=== PATIENT | male | born 1980 | race Caucasian/White ===

== ENCOUNTER → 2017-06-27 11:39 | Outpatient (CLI) | payer OTHER, SELFPAY ==
[2017-06-27 15:49] LABS: Absolute Lymphocyte Count 2.14 X10^3/ul (0.83-4.51); Absolute Neutrophil Count 3.5 X10^3/uL (2.0-7.7); Basophil# 0.04 X10^3/uL; Basophil% 0.6 % (0-1); Eosinophil# 0.18 X10^3/uL; Eosinophils% 2.8 % (0-5); Hematocrit 38.1 % (40-54); Hemoglobin 12.7 g/dl (13.0-16.5); Lymphocyte # 2.14 X10^3/ul (4.0); Lymphocyte % 33.1 % (19-41); Mean Corp Hgb Conc 33.3 g/gl (32-36); Mean Corpuscular Hgb 26.2 pg (27.0-32.0); Mean Corpuscular Volume 78.6 fL (80-94); Monocyte# 0.58 X10^3/uL; Neutrophil # 3.53 X10^3/uL (2.7-7.7); Neutrophil % 54.5 % (47-70); Platelet Count 288 K/mm3 (150-450); RBC Distribution Width CV 13.5 % (11.6-14.6); RBC Distribution Width SD 38.1 fl (35.1-43.9); Red Blood Count 4.85 M/mm3 (4.6-6.2); White Blood Count 6.5 K/mm3 (4.4-11.0)
[2017-06-27 15:52] LABS: POSITIVE COUNT NO; POSITIVE DIFFERENTIAL NO; POSITIVE MORPHOLOGY NO
[2017-06-27 16:01] LABS: ALB/GLOB Ratio 0.9 RATIO (0.9-2.4); AST(SGOT) 20 U/L (15-37); Alanine Aminotransfer ALT/SGPT 32 U/L (16-61); Albumin, Serum 3.6 g/dL (3.2-5.0); Alkaline Phosphatase 87 U/L (45-117); Anion Gap 6 (5-15); BUN 16 mg/dL (7-18); BUN/Creat Ratio 13.9 RATIO (10-20); Calcium,Total 8.6 mg/dL (8.5-10.1); Chloride 102 mmol/L (98-107); Creatinine, Serum 1.15 mg/dL (0.70-1.30); EST Glomerular Filtration Rate 75 mL/min (>60); Est Glom Filt Rate - Afr Amer 91 mL/min (>60); Globulin 3.9 g/dL (2.2-4.2); Glucose 111 mg/dL (74-106); Potassium 3.9 mmol/L (3.5-5.1); Protein, Total 7.5 g/dL (6.4-8.2); Sodium Level 137 mmol/L (136-145)
== END ==
PROVIDERS: Family Provider Family Medicine; PCP Family Medicine; Visit Provider Family Medicine
DX: Z01.818 Encounter for other preprocedural examination (principal)
CPT/HCPCS: 36415; 80053; 85025

== ENCOUNTER → 2017-08-21 08:29 | Outpatient (CLI) | payer OTHER, SELFPAY | PROVIDERS: Family Provider Family Medicine; PCP Family Medicine; Visit Provider Podiatrist | DX: Z01.818 Encounter for other preprocedural examination (principal) ==

== ENCOUNTER 2018-01-17 16:00 | Outpatient (RCR) | payer OTHER, SELFPAY ==
--- NOTE | 2017-09-10 11:09 | HP.PTEVAL_ITS ---
Patient's Visit Information GONZALO BABIN is a 36 year old M referred to Physical Therapy by Keri Bhatia DPM with a diagnosis of lateral ankle stabilization, synovectomy, and repair of osteochondral defec. Date of Evaluation: 09/10/17 Physical Therapist: Laquita Garrett - Visit Plan Frequency: 2-3x /Week Duration: 4 Weeks Plan: WBAT- wean from crutches- LE ROM and strength with functional mobility - Subjective Subjective: Initial Injury 05/31/16-had a [employer] drive over him- went to ER- x- rays ruled at sprain- day later [facility]- who told him to walk on it. Lots of soreness- [place] [facility] ordere MRI which showed a break. Sent to Dr. Camargo- attempted non surgical- boot NWB for 6 weeks- then had therapy from August to November- out of boot at end of September. Could not hop and hes a runner and wanted to get back. End of November went for a run and then it started to hurt again. MRI again- still broken. Dr. Camargo sent him to Dr. Bhatia- finally had surgery July 27, 2017 at [facility]- by Dr. Bhatia. In a cast from August 02- August 23 then has been in the boot since. Saw September 07- 50% WB with crutches- with progression to WBAT. Patient goes to [place] October 21-. Wears compression socks. Pain is located in the achilles when he steps on his heel. Worst: 10/10 when he caught himself- 5/10 normally- 0/10 at its best. No radiating pain- N/T around the incision. Sleep: not disturbed- in the boot. Is currently driving with the left foot. 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 PMHx: hernia surgery Meds: none. Fully I before all of this happened- lifts weights and was running 3-4x a week and has been doing halfs and obstacle courses. - Objective Posture: good throughout. Gait: antalgic- axillary crutches with decreased WB on the right LE-CAM walker. Weight Shifting: can WS but reports 7/10 pain in standing. HR/TR: seated- can perform in available ROM. Palpation: tender along incisions. Observation: incisions healing well- no s/s of infection. ROM : knee: wnl Ankle: DF: neutral PF: 10 degrees, Inver: 10 degrees Ever: 5 degrees. Girth: Figure 4: 54 cm, Mets: 24 cm, Mall: 27 cm - Goals Goal 1:: Patient will be I with HEP and progression. Goal Time Frame: 4-6 Weeks Goal 2:: Patient will ambulate >300 feet with a normalized gait pattern and no AD Goal Time Frame: 4-6 Weeks Goal 3:: Patient will demo increased of ROM by 10 degrees in right ankle in all directions Goal Time Frame: 4-6 Weeks Goal 4:: Patient will SLS for 15 sec without LOB or increased pain Goal Time Frame: 4-6 Weeks - Rehabilitation Potential Physical Therapy Diagnosis: Patient presents with hypomobility- he has decreased ROM, strength and muscular endurance s/p surgical intervetion leading to increased pain and decreased ability to perform ADL's. Rehabilitation Potential: Good - Anticipated Interventions Patient/Client Instruction: Educate patient on: Benefits of Fitness Program For the Purpose of:: To increase tolerance to activity/condition/position Therapeutic Exercise to Include: Strength training, Endurance training, Balance training, Agility training, Flexibilty training, Gait and locomotor training, Neuromotor development, Passive ROM, Active ROM, Dynamic Lumbar Stabilization For the Purpose of:: To improve muscle performance and motor function TENS: Yes Cryotherapy (ice pack, ice massage): Yes Thermo therapy (hot pack): Yes Ultrasound (thermal/non thermal): No For the Purpose of:: To decrease pain Thank you for the opportunity to evaluate your patient. For Medicare and Medicare HMO plans, please review the plan of care and approve it. It will need to be FAXED BACK to us at [phone] for Medicare purposes. Please let me know if there are questions or concerns regarding this plan of care. Physician Signature: Date:
--- NOTE | 2017-11-02 09:23 | HP.PTREVAL_ITS ---
Keri Bhatia DPM, It has been my pleasure to treat GONZALO BABIN over the last 21 visits for lateral ankle stabilization, synovectomy, and repair of osteochondral defec. Please see the progress note below for an update on the physical therapy plan of care! Subjective: Saw yesterday who was really happy with his progress. He has been cleared to start a walk to 5K program. He feels the ankle locks up if he hasn't used it for awhile. Has Tried to run on the TM for 3 minutes wasn't pretty but their was little pain. Favors onto the opposite side. Worst: 7/10 when he was in [place]. Objective/Function: Posture: good throughout. Edema: Figure 8: 51 cm Mall: 26 cm Meds: 23 cm. Gait: improving- but still mildly antalgic- decreased stance with decreased heel/toe pattern- does not toe off and ambulates with a flat foot - mild hip drop- wearing ankle brace and good shoes. HR/TR: able without UE A for balance- mild weight shift. SLS: 30 sec with increased muscle activation. ROM: DF: 5 degrees, PF: 30 degrees, Inv: 30 degrees, Ever: 10 degrees. Strength : 4+/5 within available range Plan Plan: Cont with POC Goals Goal 1:: Patient will be I with HEP and progression. Goal Time Frame: 4-6 Weeks Goal Progress: Progressing Goal 2:: Patient will ambulate >300 feet with a normalized gait pattern and no AD Goal Time Frame: 4-6 Weeks Goal Progress: Progressing Goal 3:: Patient will demo increased of ROM by 10 degrees in right ankle in all directions Goal Time Frame: 4-6 Weeks Goal Progress: Progressing Goal 4:: Patient will SLS for 15 sec without LOB or increased pain Goal Time Frame: 4-6 Weeks Goal Progress: Goal Met Goal 5:: Patient will run on the TM for 5 minutes with 0/10 pain and a normal patern Goal Time Frame: 4-6 Weeks Anticipated Interventions Patient/Client Instruction: Educate patient on: Benefits of Fitness Program For the Purpose of:: To increase tolerance to activity/condition/position Therapeutic Exercise to Include: Strength training, Endurance training, Balance training, Agility training, Flexibilty training, Gait and locomotor training, Neuromotor development, Passive ROM, Active ROM, Dynamic Lumbar Stabilization For the Purpose of:: To improve muscle performance and motor function TENS: Yes Cryotherapy (ice pack, ice massage): Yes Thermo therapy (hot pack): Yes Ultrasound (thermal/non thermal): No For the Purpose of:: To decrease pain Please do not hesitate to contact me at [phone] by phone or Fax: if you have questions or concerns regarding this new plan of care! Sincerely, Laquita Garrett
--- NOTE | 2018-01-17 16:37 | HP.PTDCSUM ---
HP - PT D/C Summary It has been my pleasure to treat GONZALO BABIN under orders from Keri Bhatia DPM, for the diagnosis of lateral ankle stabilization, synovectomy, and repair of osteochondral defec for a total of 46 visit(s). Discharge Date: 01/17/18 Please see the following information for a summary of their discharge status. - Subjective Subjective: Feel fine. Has wierd intermittent painsposterior with forward weight shift but transient. Run a couple 5 Ks and up to 3x/week. Sleeping OK except for LBP. No limitations at work. Pulling pallets around. Will have final x ray in May. 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 - Pain Right Foot Pain Intensity (Out of 10): 0 - Overall Improvement % Improvement: 90 - Objective Objective/Function: Patient walks near normal, slight R trendelenberg adn avoids R pushoff slightly. Jogs with slight R push off avoidance at end stance but no problems and thinks he has always done that. 4 degrees DF R actvely and maybe 5 passively. 35 PF and ev/inv WFL. Single leg hop is mostly an upper leg hop and heel raise R is very difficult vs L. OVERALL DOING WELL FUNCTIONALLY, SHOULD AND WILL CONTINUE TO WORK ON WEAKNESS AND TIGHTNESS IN R ANKLE VIA HEP DAILY. - Goals Goal 1:: Patient will be I with HEP and progression. Goal Progress: Goal Met Goal 2:: Patient will ambulate >300 feet with a normalized gait pattern and no AD Goal Progress: avoids push off R Goal 3:: Patient will demo increased of ROM by 10 degrees in right ankle in all directions Goal Progress: Progressing Goal 4:: Patient will SLS for 15 sec without LOB or increased pain Goal Progress: Goal Met Goal 5:: Patient will run on the TM for 5 minutes with 0/10 pain and a normal patern Goal Progress: R antalgia but no pain. - Plan Plan: D/C - D/C Information Discharge Comments: pT HAPPY WITH PROGREE, HAS NO PAIN AND HAS RUN WITHOUT DIFFICULTY MULTIPLE 5 K'S. HE HAS SOME STIFFNESS IN ANKLE RESIDUALLY AND SOME WEAKNESS WHCIH HE CAN CONTINUE TO WORK ON AT HOME VIA HEP. If there are questions or concerns regarding this patient's physical therapy, please feel free to call me at [phone]. Thank you for the referral of this patient. Sincerely, Dashawn Huber DPT, OC
== END 2018-01-17 19:00 | disposition home or self-care (01) ==
LOC: PT 16:00
PROVIDERS: Family Provider Family Medicine; PCP Family Medicine; Visit Provider Podiatrist
DX: Z98.890 Other specified postprocedural states (principal)
CPT/HCPCS: 97110; 97162; 97164; 97530

== ENCOUNTER → 2018-07-25 15:34 | Outpatient (CLI) | payer OTHER, SELFPAY ==
--- NOTE | 2018-07-25 15:36 | RAD_ITS ---
STUDY: X-RAY - LEFT KNEE REASON FOR EXAM: Male, 37 years old. Pain TECHNIQUE: 4 view(s) of the knee. COMPARISON: None. FINDINGS: There is a small knee joint effusion but no acute fractures or dislocations. The quadriceps and patellar tendons are normal. Mild soft tissue swelling in the prepatellar soft tissues. RAD/Knee 4 or More Views IMPRESSION: No fracture. Mild swelling in the prepatellar soft tissues Electronically Signed: Peng Greenfield MD at 23:57 EDT Tel , Service support ,
== END ==
PROVIDERS: Family Provider Family Medicine; PCP Family Medicine; Referring Provider Orthopaedic Surgery; Visit Provider Orthopaedic Surgery
DX: R52 Pain, unspecified (principal)
CPT/HCPCS: 73564

== ENCOUNTER → 2018-08-05 06:33 | Outpatient (CLI) | payer OTHER, SELFPAY ==
--- NOTE | 2018-08-05 06:36 | MRI_ITS ---
STUDY: MRI LEFT KNEE REASON FOR EXAM: Medial knee pain, loss of flexibility. TECHNIQUE: Standardized fat and water weighted pulse sequences were obtained in all 3 orthogonal planes. COMPARISON: Radiographs 07/25/2018. FINDINGS: There is a complex tear of the posterior horn of the medial meniscus (proton-density sagittal images 8-10; proton density coronal images 14, 15). Normal hyaline cartilage of the medial femorotibial compartment. There is mild subchondral bone edema of the medial tibial plateau (T2 coronal images 13-19), a stress phenomenon. Normal medial collateral ligamentous complex (MCL). Normal distal semimembranosus, gracilis and semitendinosus tendons. Normal lateral meniscus. Normal hyaline cartilage of the lateral femorotibial compartment. Normal lateral femoral condyle and tibial plateau. Normal proximal tibiofibular articulation. Normal lateral collateral (fibular) ligament. Normal popliteus tendon. Normal biceps femoris tendon. Normal anterior cruciate ligament (ACL). Normal posterior cruciate ligament (PCL). Normal congruent patellofemoral articulation. Normal hyaline cartilage of the patellofemoral compartment. Normal medial and lateral patellar retinaculum. Normal visualized quadriceps tendon. There is tendon thickening of the distal patellar tendon, with a corticated osseous fragment of the anterior tibial tubercle, consistent with a sequela of remote Alo-Schlatter's disease (proton-density sagittal image 25). Normal Hoffa's fat pad. There is a small joint effusion. There is a thin medial patellar plica. There is a small popliteal cyst (T2 sagittal images 3-8). The otherwise visualized osseous structures are unremarkable. MRI/Lower Ext Joint Only (Routine) IMPRESSION: Medial meniscal tear. Mild subchondral bone edema medial tibial plateau, a stress phenomenon. Small joint effusion. Small popliteal cyst. Remote Laurel-Schlatter's disease. Electronically Signed: Alexandre Hurley MD at 8:21 EDT Tel , Service support ,
== END ==
PROVIDERS: Referring Provider Orthopaedic Surgery; Visit Provider Orthopaedic Surgery
DX: S83.242A Other tear of medial meniscus, current injury, left knee, initial encounter (principal)
CPT/HCPCS: 73721

== ENCOUNTER 2018-08-20 06:00 | Day surgery (SDC) | payer OTHER, SELFPAY ==
[2018-08-20 06:31] VITALS: BP 120/87; PULSE 72; RESP 14; TEMP 36.4; O2SAT 97; BMI 27.0
[2018-08-20] MEDS: MethylPREDNISolone Acetate 80 MG/ML Vial (08:00)
[2018-08-20] MEDS: Bupiv/Epi 0.5% Mpf 30 ML Vial (08:00)
[2018-08-20] MEDS: Morphine 4 MG/ML Syringe (08:00)
[2018-08-20] MEDS: Bupivacaine Mpf 0.5% 30 ML VIAL (08:00)
[2018-08-20 08:21] VITALS: BP 120/87; BP 124/94; PULSE 97; RESP 20; TEMP 36.2; O2SAT 98
--- NOTE | 2018-08-20 08:26 | PCM.DC.ORTHO ---
Discharge Diet: No Restrictions Weight Bearing Status: Weight bearing as tolerated Additional Activity Instructions:: Ice and elevate next 72 hours .keep dressing on clean and dry for 48 hours then may remove begin showering daily but do not submerge in tub or pool. After shower may apply Band-Aids . Encourage knee range of motion weightbearing as tolerated, use crutches until confident in knee then may discontinue. No strenuous activity. When not ambulating keep iced and elevated next 72 hours. Call your doctor if you observe: Fever of 101 or Higher, Shortness of breath, Chest pain, Uncontrolled pain Allergies/Adverse Reactions: Allergies amoxicillin Allergy (Verified 08/14/18 08:05) rash, hives aspirin Allergy (Verified 08/13/18 15:18) Unknown Medications to take at Discharge Bee Pollen 1,000 mg PO DAILY 10/25/16 meloxicam 15 mg tablet 15 mg PO DAILY #30 tab 07/25/18 Hydrocodone Bitart/Apap 5-325 [[place] 5MG-325MG] 1 - 2 tablet PO Q4H PRN PRN 5 Days #30 tablet 08/20/18 The following prescriptions were given: Hydrocodone Bitart/Apap 5-325 [[place] 5MG-325MG] 1 - 2 tablet PO Q4H PRN PRN 5 Days #30 tablet PRN Reason: Pain Primary Care Physician: Care Physician,No Primary [Primary Care Provider] - Test Results: Test results from this visit will be discussed in further detail at your follow-up appointment, if applicable. Please Follow Up With: Ismael Espinosa DO - 2wsteph
--- NOTE | 2018-08-20 08:29 | DCINST_ITS ---
Discharge Diet: No Restrictions Weight Bearing Status: Weight bearing as tolerated Additional Activity Instructions:: Ice and elevate next 72 hours .keep dressing on clean and dry for 48 hours then may remove begin showering daily but do not submerge in tub or pool. After shower may apply Band-Aids . Encourage knee range of motion weightbearing as tolerated, use crutches until confident in knee then may discontinue. No strenuous activity. When not ambulating keep iced and elevated next 72 hours. Call your doctor if you observe: Fever of 101 or Higher, Shortness of breath, Chest pain, Uncontrolled pain Allergies/Adverse Reactions: Allergies amoxicillin Allergy (Verified 08/14/18 08:05) rash, hives aspirin Allergy (Verified 08/13/18 15:18) Unknown Medications to take at Discharge Bee Pollen 1,000 mg PO DAILY 10/25/16 meloxicam 15 mg tablet 15 mg PO DAILY #30 tab 07/25/18 Hydrocodone Bitart/Apap 5-325 [[place] 5MG-325MG] 1 - 2 tablet PO Q4H PRN PRN 5 Days #30 tablet 08/20/18 The following prescriptions were given: Hydrocodone Bitart/Apap 5-325 [[place] 5MG-325MG] 1 - 2 tablet PO Q4H PRN PRN 5 Days #30 tablet PRN Reason: Pain Primary Care Physician: Care Physician,No Primary [Primary Care Provider] - Test Results: Test results from this visit will be discussed in further detail at your follow- up appointment, if applicable. Please Follow Up With: Ismael Espinosa DO - 2wsteph
[2018-08-20 08:30] VITALS: BP 120/87; BP 121/90; PULSE 78; RESP 16; O2SAT 99
--- NOTE | 2018-08-20 08:32 | OP.PCM_ITS ---
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 He did wish to undergo elective arthroscopic surgery to attempt to alleviate the symptoms. Risk benefits and alternatives of the procedure were reviewed including risk of bleeding infection nerve artery tissue damage need for further surgery continued pain and expected postoperative course. Procedure: The patient was met in the preoperative holding area. The operative extremity was identified by both patient and physician and family and marked. Patient was brought back to the operating room on a wheeled cart and transferred to the operating table in the supine position. Anesthesia was started. A well- padded tourniquet was placed on the operative extremity. A lower extremity leg sow was secured to the operative extremity. The contralateral extremity was well-padded and the end of the bed was flexed to 90 degrees. The patient was prepped and draped in the usual sterile fashion. A timeout was called to ensure the proper patient, procedure, and extremity were being contemplated. 0.5% Marcaine with epinephrine was injected into the planned incisional areas under the skin only. An Esmarch was used to exsanguinate the extremity and the tourniquet was inflated. An 11 blade scalpel was used to make a stab incision in the anterior lateral portal. The arthroscope was inserted into the intercondylar notch and inflow and outflow tubes were attached. Arthroscopic visualization began. The medial compartment was entered. An 18-gauge spinal needle was used to establish the placement for anterior medial portal. An 11 blade scalpel was used to make a stab incision. Blunt probe was inserted followed by a meniscal probe. Immediately there was noted to be a large radial and horizontal tear of the posterior horn and body of the medial meniscus with the use of a shaver and ArthroCare partial medial meniscectomy was performed there was noted to be grade 2-3 cartilage wear on the most lateral aspect of the medial femoral condyle there was no loose cartilage that required chondroplasty the ACL was found to be intact. The lateral compartment was entered was free of meniscal and cartilage pathology The arthroscope was switched to the medial portal to complete the procedure. The medial and lateral gutters were inspected and were free of loose bodies. The patellofemoral joint was inspected was a small amount of grade 2-3 cartilage wear. There was good patellar tracking. The knee was thoroughly irrigated and drained. An intra-articular injection with 5 cc 0.5% Marcaine plain 4 mg of morphine and 40 mg of Depo-Medrol was injected intra-articularly. The arthroscope was removed the portals were closed with 3-0 nylon arthroscopic stitches. Followed by Xeroform 4 x 4's ABDs web roll and an Lukas wrap. The tourniquet was let down and the drapes were removed. All counts were correct. The patient was brought back to the PACU in stable condition.
[2018-08-20 08:45] VITALS: BP 120/87; BP 128/82; PULSE 73; RESP 16; TEMP 36.3; O2SAT 99
[2018-08-20 09:24] VITALS: BP 120/87; BP 121/76; PULSE 71; RESP 18; TEMP 36.4; O2SAT 100
== END 2018-08-20 09:26 | disposition home or self-care (01) ==
LOC: SDC 06:03 → AC 06:08
PROVIDERS: Referring Provider Orthopaedic Surgery; Visit Provider Orthopaedic Surgery
PROC: (CPT 29870; principal; 2018-08-20 07:10)
DX: S83.242A Other tear of medial meniscus, current injury, left knee, initial encounter (principal); X58.XXXA Exposure to other specified factors, initial encounter; Y92.9 Unspecified place or not applicable; K21.9 Gastro-esophageal reflux disease without esophagitis
CPT/HCPCS: 01400; 29881; J7120; J2405

== ENCOUNTER → 2022-06-21 | Outpatient (CLI) | payer BC, SELFPAY ==
[2022-06-21 17:52] LABS: Absolute Lymphocyte Count 2.74 X10^3/uL (0.83-4.51); Absolute Neutrophil Count 2.7 X10^3/uL (2.0-7.7); Basophil# 0.04 X10^3/uL; Basophil% 0.6 % (0-1); Eosinophil# 0.19 X10^3/uL; Hematocrit 41.2 % (40-54); Hemoglobin 13.8 g/dL (13.0-16.5); Lymphocyte # 2.74 X10^3/ul (0.83-4.51); Lymphocyte % 43.2 % (19-41); Mean Corp Hgb Conc 33.5 g/dL (32-36); Mean Corpuscular Volume 83.7 fL (80-94); Mean Platelet Vol. 9.1 fl (6.2-12.0); Monocyte# 0.66 X10^3/uL; Monocyte% 10.4 % (0-10); NRBC Flagged by Analyzer 0 % (0-5); Neutrophil # 2.69 X10^3/uL (2.7-7.7); Neutrophil % 42.5 % (47-70); Platelet Count 324 K/mm3 (150-450); RBC Distribution Width CV 12.9 % (11.6-14.6); RBC Distribution Width SD 38.9 fl (35.1-43.9); Red Blood Count 4.92 M/mm3 (4.6-6.2); White Blood Count 6.3 K/mm3 (4.4-11.0)
[2022-06-21 19:05] LABS: ALB/GLOB Ratio 0.9 RATIO (0.9-2.4); AST(SGOT) 18 U/L (15-37); Alanine Aminotransfer ALT/SGPT 27 U/L (16-61); Albumin, Serum 3.5 g/dL (3.2-5.0); Alkaline Phosphatase 99 U/L (45-117); Anion Gap 8 (5-15); BUN 21 mg/dL (7-18); BUN/Creat Ratio 20.2 RATIO (10-20); Calcium,Total 8.4 mg/dL (8.5-10.1); Chloride 105 mmol/L (98-107); Cholesterol 239 mg/dL (200); Creatinine, Serum 1.04 mg/dL (0.70-1.30); EST Glomerular Filtration Rate 83 mL/min (>60); Est Glom Filt Rate - Afr Amer 100 mL/min (>60); Globulin 3.8 g/dL (2.2-4.2); Glucose 92 mg/dL (74-106); High Density Lipoprotein 47 mg/dL; Potassium 3.7 mmol/L (3.5-5.1); Protein, Total 7.3 g/dL (6.4-8.2); Sodium Level 138 mmol/L (136-145); Triglycerides 243 mg/dL; Very Low Density Lipoprotein 49 mg/dL (5-40)
== END | disposition home or self-care (01) ==
LOC: MFPLAB 16:51
PROVIDERS: PCP Family Medicine; Referring Provider Family Medicine; Visit Provider Family Medicine
DX: Z00.00 Encounter for general adult medical examination without abnormal findings (principal); R35.89 Other polyuria
CPT/HCPCS: 36415; 80053; 80061; 84443; 85025

== ENCOUNTER → 2022-09-01 | Outpatient (CLI) | payer BC, SELFPAY ==
[2022-09-01 18:06] LABS: AST(SGOT) 18 U/L (15-37); Alanine Aminotransfer ALT/SGPT 25 U/L (16-61); Albumin, Serum 3.7 g/dL (3.2-5.0); Alkaline Phosphatase 93 U/L (45-117); Anion Gap 4 (5-15); BUN 23 mg/dL (7-18); BUN/Creat Ratio 20.5 RATIO (10-20); Calcium,Total 8.8 mg/dL (8.5-10.1); Chloride 105 mmol/L (98-107); Creatinine, Serum 1.12 mg/dL (0.70-1.30); EST Glomerular Filtration Rate 76 mL/min (>60); Est Glom Filt Rate - Afr Amer 92 mL/min (>60); Globulin 3.7 g/dL (2.2-4.2); Glucose 107 mg/dL (74-106); Potassium 3.7 mmol/L (3.5-5.1); Protein, Total 7.4 g/dL (6.4-8.2); Sodium Level 136 mmol/L (136-145)
== END | disposition home or self-care (01) ==
LOC: MFPLAB 14:49
PROVIDERS: PCP Family Medicine; Visit Provider Family Medicine
DX: B35.1 Tinea unguium (principal)
CPT/HCPCS: 36415; 80053

== ENCOUNTER → 2023-01-22 | Outpatient (CLI) | payer BC, SELFPAY ==
[2023-01-22 18:15] LABS: ALB/GLOB Ratio 0.9 RATIO (0.9-2.4); AST(SGOT) 18 U/L (15-37); Alanine Aminotransfer ALT/SGPT 22 U/L (16-61); Albumin, Serum 3.4 g/dL (3.2-5.0); Alkaline Phosphatase 91 U/L (45-117); Anion Gap 6 (5-15); BUN 16 mg/dL (7-18); BUN/Creat Ratio 13.6 RATIO (10-20); Calcium,Total 8.5 mg/dL (8.5-10.1); Chloride 106 mmol/L (98-107); Cholesterol 221 mg/dL (200); Creatinine, Serum 1.18 mg/dL (0.70-1.30); EST Glomerular Filtration Rate 71 mL/min (>60); Est Glom Filt Rate - Afr Amer 86 mL/min (>60); Globulin 3.6 g/dL (2.2-4.2); Glucose 101 mg/dL (74-106); High Density Lipoprotein 39 mg/dL; Potassium 3.9 mmol/L (3.5-5.1); Sodium Level 137 mmol/L (136-145); Triglycerides 243 mg/dL; Very Low Density Lipoprotein 49 mg/dL (5-40)
[2023-01-23 09:51] LABS: Hemoglobin A1c 5.2 % (3.8-5.6)
== END | disposition home or self-care (01) ==
LOC: MFPLAB 14:40
PROVIDERS: PCP Family Medicine; Visit Provider Family Medicine
DX: E78.5 Hyperlipidemia, unspecified (principal); R73.09 Other abnormal glucose
CPT/HCPCS: 36415; 80053; 80061; 83036

== ENCOUNTER 2023-07-11 14:43 | Outpatient (CLI) | payer BC, SELFPAY ==
[2023-07-11 17:37] LABS: Absolute Lymphocyte Count 2.58 X10^3/uL (0.83-4.51); Absolute Neutrophil Count 2.7 X10^3/uL (2.0-7.7); Basophil# 0.04 X10^3/uL; Basophil% 0.7 % (0-1); Eosinophil# 0.19 X10^3/uL; Eosinophils% 3.1 % (0-5); Hematocrit 37.5 % (40-54); Hemoglobin 12.4 g/dL (13.0-16.5); Lymphocyte # 2.58 X10^3/ul (0.83-4.51); Lymphocyte % 42.4 % (19-41); Mean Corp Hgb Conc 33.1 g/dL (32-36); Mean Corpuscular Hgb 27.7 pg (27.0-32.0); Mean Corpuscular Volume 83.7 fL (80-94); Monocyte# 0.53 X10^3/uL; Monocyte% 8.7 % (0-10); NRBC Flagged by Analyzer 0 % (0-5); Neutrophil # 2.73 X10^3/uL (2.7-7.7); Neutrophil % 44.9 % (47-70); Platelet Count 323 K/mm3 (150-450); RBC Distribution Width SD 39.2 fl (35.1-43.9); Red Blood Count 4.48 M/mm3 (4.6-6.2); White Blood Count 6.1 K/mm3 (4.4-11.0)
[2023-07-11 18:17] LABS: ALB/GLOB Ratio 0.9 RATIO (0.9-2.4); AST(SGOT) 20 U/L (15-37); Alanine Aminotransfer ALT/SGPT 21 U/L (16-61); Albumin, Serum 3.4 g/dL (3.2-5.0); Alkaline Phosphatase 93 U/L (45-117); Anion Gap 5 (5-15); BUN 15 mg/dL (7-18); Calcium,Total 8.7 mg/dL (8.5-10.1); Chloride 106 mmol/L (98-107); Cholesterol 212 mg/dL (200); Creatinine, Serum 1.25 mg/dL (0.70-1.30); EST Glomerular Filtration Rate 67 mL/min (>60); Est Glom Filt Rate - Afr Amer 81 mL/min (>60); Globulin 3.7 g/dL (2.2-4.2); Glucose 103 mg/dL (74-106); High Density Lipoprotein 41 mg/dL; Potassium 3.9 mmol/L (3.5-5.1); Protein, Total 7.1 g/dL (6.4-8.2); Sodium Level 137 mmol/L (136-145); Triglycerides 177 mg/dL; Very Low Density Lipoprotein 35 mg/dL (5-40)
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
== END 2023-07-11 23:59 | disposition home or self-care (01) ==
LOC: MFPLAB 14:44
PROVIDERS: PCP Family Medicine; Visit Provider Family Medicine
DX: D64.9 Anemia, unspecified (principal); E78.5 Hyperlipidemia, unspecified
CPT/HCPCS: 36415; 80053; 80061; 85025

== ENCOUNTER → 2023-07-16 | Outpatient (CLI) | payer BC, SELFPAY ==
[2023-07-16 18:08] LABS: Ferritin 6 ng/mL (26-388); Iron 37 ug/dL (65-175); Iron Binding Capacity,Total 384 ug/dL (250-450)
[2023-07-16 18:12] LABS: Vitamin B12 267 pg/mL (211-911)
[2023-07-16 18:29] LABS: Hemoglobin A1c 5.1 % (3.8-5.6)
--- OUTSIDE RECORDS SUMMARY | 2023-07-16 21:22 | XMS RPT_ITS | CCD ---
Author Name Unknown Address [address] [place] [address] Organization [facility] Care Team Providers Care Yard Warehouse Worker Name Role Phone Brenna Camargo Unavailable [phone] [...] 09:14-0500 BMI (Body Mass Index) 27.52 kg/m2 [facility] Work Phone: 07-06-2016 09:14-0500 Weight 82.1 kg [facility] Work Phone: 06-27-2016 12:58-0500 Body Temperature 98.7 [degF] [facility] Work Phone: 06-27-2016 12:58-0500 BP Diastolic 64 mm[Hg] [facility] Work Phone: 06-27-2016 12:58-0500 BP Systolic 110 mm[Hg] [facility] Work Phone: 06-27-2016 12:58-0500 BSA (Body Surface Area) 1.98 m2 [facility] Work Phone: 06-27-2016 12:58-0500 Pulse (Heart Rate) 83 /min [facility] Work Phone: 06-27-2016 12:58-0500 Pulse Oximetry 99 % [facility] Work Phone: 06-27-2016 12:58-0500 Respiratory Rate 16 /min [facility] Work Phone: 06-01-2016 10:23-0500 Height 172.72 cm [facility] Work [...] Author Start: 01-12-2017 End: 01-12-2017 Appointment Appointment [facility] Work Phone: Start: 01-02-2017 End: 01-02-2017 Appointment Appointment [facility] Work Phone: Start: 12-05-2016 End: 12-05-2016 Appointment Appointment [facility] Work Phone: Start: 11-16-2016 End: 11-16-2016 Appointment Appointment [facility] Work Phone: Start: 11-16-2016 End: 11-22-2016 Mri jnt of lwr extre w/o dye MRI Joint Lower Extremity [facility] Work Phone: Start: 10-05-2016 End: 10-05-2016 Appointment Appointment [facility] Work Phone: Start: 10-05-2016 End: 10-05-2016 X-ray exam of ankle X-Ray, Ankle [facility] Work Phone: Start: 08-23-2016 End: 08-23-2016 Physical Therapy [facility], [address] [place] [address], [id number] [facility] Work Phone: Start: 08-17-2016 End: 08-17-2016 X-ray exam of ankle X-Ray, Ankle [facility] Work Phone: Patient Education ICE%20PACK%20A PPLICATIO N [facility] Work Phone: Payers Date Payer Category Payer Policy ID Worker's Compensation [id number] Progress note 02-11-2021 Note Date & Type Note Facility 02-11-2021 Note HNO ID: [id number] Author: Suha Mcgregor APRN.[employer] Service: ? Author Type: Nurse Practitioner Type: Progress Notes Filed: 02/15/2021 2:21 PM Note Text: This note was created using [employer]. Subjective Gonzalo Babin is a 40 year old male. 40 year old male with no PMH presents for concerns for COVID 19. Nasal drainage, headache x 1 day +chills. Denies SOB.Denies dyspnea. positive home test X 2 family members seen here earlier in week and tested positive. Endorses that he was able to run without issue. Endorses that he is vaccinated Works for [employer]. The history is provided by the patient. No benefits representative was used. Flu Like Symptoms This is [...] bruising, lesion or (more content not included)... [facility] Summary Purpose Family History No Family History Records FoundNo Family History Records Found Advance Directives No Advanced Directives Records FoundNo Advanced Directives Records Found Additional Source Comments (unrecognized sect ion and content) No Status Records FoundNo Status Records Found INFORMATION SOURCE (unrecogn ized section and content) DATE CREATED AUTHOR AUTHOR'S ORGANIZ ATION 06/24/2021 [facility] FOR RECORDS PERTAINING TO PATIENTS WHO ARE [...] BE BASED ON THE PRIMARY CLINICAL RECORDS. [email or web address] provides no warranty or guarantee of the accuracy or completeness of information in this document.
== END | disposition home or self-care (01) ==
LOC: MFPLAB 16:49
PROVIDERS: PCP Family Medicine; Visit Provider Family Medicine
DX: D64.9 Anemia, unspecified (principal); R73.09 Other abnormal glucose
CPT/HCPCS: 36415; 82607; 82728; 83036; 83540; 83550

== ENCOUNTER → 2024-01-16 | Outpatient (CLI) | payer OTHER, SELFPAY ==
[2024-01-16 12:27] LABS: Absolute Lymphocyte Count 2.01 X10^3/uL (0.83-4.51); Absolute Neutrophil Count 4.4 X10^3/uL (2.0-7.7); Basophil# 0.06 X10^3/uL; Basophil% 0.8 % (0-1); Eosinophil# 0.16 X10^3/uL; Eosinophils% 2.2 % (0-5); Hematocrit 42.8 % (40-54); Lymphocyte # 2.01 X10^3/ul (0.83-4.51); Mean Corpuscular Hgb 30.4 pg (27.0-32.0); Mean Corpuscular Volume 86.8 fL (80-94); Mean Platelet Vol. 9.1 fl (6.2-12.0); Monocyte# 0.56 X10^3/uL; Monocyte% 7.8 % (0-10); NRBC Flagged by Analyzer 0 % (0-5); Neutrophil # 4.36 X10^3/uL (2.7-7.7); Neutrophil % 60.9 % (47-70); Platelet Count 311 K/mm3 (150-450); RBC Distribution Width CV 12.1 % (11.6-14.6); RBC Distribution Width SD 38.2 fl (35.1-43.9); Red Blood Count 4.93 M/mm3 (4.6-6.2); White Blood Count 7.2 K/mm3 (4.4-11.0)
[2024-01-16 12:58] LABS: Vitamin B12 299 pg/mL (211-911)
[2024-01-16 14:06] LABS: ALB/GLOB Ratio 0.9 RATIO (0.9-2.4); AST(SGOT) 15 U/L (15-37); Alanine Aminotransfer ALT/SGPT 20 U/L (16-61); Albumin, Serum 3.6 g/dL (3.2-5.0); Alkaline Phosphatase 95 U/L (45-117); Anion Gap 10 (5-15); BUN 16 mg/dL (7-18); BUN/Creat Ratio 15.4 RATIO (10-20); Calcium,Total 9.2 mg/dL (8.5-10.1); Chloride 105 mmol/L (98-107); Cholesterol 202 mg/dL (200); Creatinine, Serum 1.04 mg/dL (0.70-1.30); EST Glomerular Filtration Rate 82 mL/min (>60); Est Glom Filt Rate - Afr Amer 99 mL/min (>60); Ferritin 20 ng/mL (26-388); Globulin 3.9 g/dL (2.2-4.2); Glucose 93 mg/dL (74-106); High Density Lipoprotein 40 mg/dL; Iron 137 ug/dL (65-175); Iron Binding Capacity,Total 348 ug/dL (250-450); PERCENT IRON SATURATION 39.4 % (15.0-55.0); Potassium 3.8 mmol/L (3.5-5.1); Protein, Total 7.5 g/dL (6.4-8.2); Sodium Level 139 mmol/L (136-145); Triglycerides 142 mg/dL; Very Low Density Lipoprotein 28 mg/dL (5-40)
== END | disposition home or self-care (01) ==
LOC: MFPLAB 10:22
PROVIDERS: PCP Family Medicine; Visit Provider Family Medicine
DX: D64.9 Anemia, unspecified (principal); E78.5 Hyperlipidemia, unspecified
CPT/HCPCS: 36415; 80053; 80061; 82607; 82728; 82746; 83540; 83550; 85025

== ENCOUNTER → 2024-07-18 | Outpatient (CLI) | payer OTHER, SELFPAY ==
[2024-07-18 17:53] LABS: Absolute Lymphocyte Count 2.46 X10^3/uL (0.83-4.51); Basophil# 0.05 X10^3/uL; Basophil% 0.8 % (0-1); Eosinophil# 0.22 X10^3/uL; Eosinophils% 3.5 % (0-5); Hematocrit 41.7 % (40-54); Hemoglobin 14.4 g/dL (13.0-16.5); Lymphocyte # 2.46 X10^3/ul (0.83-4.51); Lymphocyte % 38.7 % (19-41); Mean Corp Hgb Conc 34.5 g/dL (32-36); Mean Corpuscular Hgb 30.4 pg (27.0-32.0); Mean Platelet Vol. 9.1 fl (6.2-12.0); Monocyte# 0.58 X10^3/uL; Monocyte% 9.1 % (0-10); NRBC Flagged by Analyzer 0 % (0-5); Neutrophil # 3.02 X10^3/uL (2.7-7.7); Neutrophil % 47.6 % (47-70); Platelet Count 322 K/mm3 (150-450); RBC Distribution Width CV 12.6 % (11.6-14.6); RBC Distribution Width SD 40.2 fl (35.1-43.9); Red Blood Count 4.74 M/mm3 (4.6-6.2); White Blood Count 6.4 K/mm3 (4.4-11.0)
[2024-07-18 19:04] LABS: ALB/GLOB Ratio 1.3 RATIO (0.9-2.4); AST(SGOT) 24 U/L (<=37); Alanine Aminotransfer ALT/SGPT 21 U/L (<=46); Albumin, Serum 4.1 g/dL (3.5-5.0); Alkaline Phosphatase 99 U/L (40-129); Anion Gap 13 (5-15); BUN 16 mg/dL (4-19); BUN/Creat Ratio 16.9 RATIO (10-20); Calcium,Total 9.2 mg/dL (7.6-11.0); Carbon Dioxide 23.2 mmol/L (21.0-32.0); Chloride 101 mmol/L (98-108); Cholesterol 235 mg/dL (<=200); Creatinine, Serum 0.95 mg/dL (0.70-1.20); EST Glomerular Filtration Rate 101 (>60); Ferritin 34 ng/mL (37-417); Globulin 3.2 g/dL (2.2-4.2); Glucose 88 mg/dL (70-99); High Density Lipoprotein 39 mg/dL; Low Density Lipoprotein Calc. 142 mg/dL; Potassium 3.8 mmol/L (3.3-5.1); Protein, Total 7.3 g/dL (5.9-8.4); Sodium Level 137 mmol/L (133-145); Total Bilirubin 0.85 mg/dL (0.00-1.30); Triglycerides 268 mg/dL; Very Low Density Lipoprotein 54 mg/dL (5-40); cholesterol:hdl ratio screen 5.96
[2024-07-18 20:19] LABS: Iron 102 ug/dL (65-175); Iron Binding Capacity,Total 313 ug/dL (250-450); Iron Binding Capacity,Unsat 211 ug/dL (228-428)
== END | disposition home or self-care (01) ==
LOC: MFPLAB 15:03
PROVIDERS: PCP Family Medicine; Referring Provider Family Medicine; Visit Provider Family Medicine
DX: E78.5 Hyperlipidemia, unspecified (principal); D50.9 Iron deficiency anemia, unspecified
CPT/HCPCS: 36415; 80053; 80061; 82728; 83540; 83550; 85025

== ENCOUNTER → 2025-01-20 | Outpatient (CLI) | payer OTHER, SELFPAY ==
[2025-01-20 17:55] LABS: Hematocrit 39.0 % (40-54); Hemoglobin 13.9 g/dL (13.0-16.5); Immature Granulocytes Count 0.040 X10^3/uL (0.0-0.0); Mean Corp Hgb Conc 35.6 g/dL (32-36); Mean Corpuscular Volume 85.3 fL (80-94); Mean Platelet Vol. 8.9 fl (6.2-12.0); NRBC Flagged by Analyzer 0 % (0-5); Platelet Count 330 K/mm3 (150-450); RBC Distribution Width CV 12.0 % (11.6-14.6); RBC Distribution Width SD 37.2 fl (35.1-43.9); Red Blood Count 4.57 M/mm3 (4.6-6.2); White Blood Count 10.9 K/mm3 (4.4-11.0)
[2025-01-20 18:28] LABS: AST(SGOT) 21 U/L (<=37); Alanine Aminotransfer ALT/SGPT 20 U/L (<=46); Albumin, Serum 4.0 g/dL (3.5-5.0); Alkaline Phosphatase 99 U/L (40-129); Anion Gap 12 (5-15); BUN 17 mg/dL (4-19); BUN/Creat Ratio 17.9 RATIO (10-20); Calcium,Total 9.3 mg/dL (7.6-11.0); Carbon Dioxide 21.5 mmol/L (21.0-32.0); Chloride 104 mmol/L (98-108); Cholesterol 202 mg/dL (<=200); Globulin 3.2 g/dL (2.2-4.2); Glucose 112 mg/dL (70-99); Low Density Lipoprotein Calc. 99 mg/dL; Potassium 3.9 mmol/L (3.3-5.1); Triglycerides 370 mg/dL; Very Low Density Lipoprotein 74 mg/dL (5-40); cholesterol:hdl ratio screen 6.94
[2025-01-20 18:53] LABS: Iron 40 ug/dL (65-175); Iron Binding Capacity,Total 291 ug/dL (250-450); Iron Binding Capacity,Unsat 251 ug/dL (228-428)
== END | disposition home or self-care (01) ==
LOC: MFPLAB 14:58
PROVIDERS: PCP Family Medicine; Visit Provider Family Medicine
DX: E78.5 Hyperlipidemia, unspecified (principal); D50.9 Iron deficiency anemia, unspecified
CPT/HCPCS: 36415; 80053; 80061; 83540; 83550; 85025